=== PATIENT | male | born 1945 | race Caucasian/White ===

== ENCOUNTER 2022-05-03 15:09 | Emergency (ER) | payer MEDICARE, SELFPAY ==
--- NOTE | 2022-05-03 15:23 | PC.NURSE ---
Pt called 911 at approximately 1345 complaining of chest pain. Pt down for approximately 1hr per EMS. EMS reported that patient was in V-Fib on arrival. EMS reported administering a total of 9 Epinepherine, 2 of Narcan, and 1 amp of Bicarb en route to facility while performing CPR. EMS reported achieving ROSC for approximately 20 minutes before pt returned to asystole. EMS was performing CPR upon arrival to ED. 1503 Patient arrived to ED treatment room via EMS. CPR in progress. 1508 Pulse check. Asystole. CPR resumed. 1509 1 Epinepherine administered via Rt IO. 1510 Pulse check. Asystole. D/Divina CPR. 1510 TOD Called
--- NOTE | 2022-05-03 16:27 | W.ED.CPR ---
HPI - CPR General: Chief Complaint: Cardiac Arrest/CPR Stated Complaint: code blue Time Seen by Provider: 05/03/22 15:16 History of Present Illness: 77-year-old male presents in by EMS chief complaint of CPR in progress. The patient was on the phone with family which she contacted a personal best friend which was telling him he had a heart attack in which the personal best friend contacted 911 Jane littlejohn arrived upon the house which patient was unresponsive noted to be in his reclining chair with no pulse. Immediately CPR was started by Sheriff carvajal which followed that by EMS upon EMS arrival the patient was found to be in PEA/V. fib patient was given several doses of both epi and atropine as well as 3 shocks/defibrillation's were advised patient proceeded to go back and forth had a PEA as well as asystole when she presented to the ER total downtime from bystander CPR was greater than 1 hour. Patient did have a Combitube placed prior to arrival with no difficulty. Review of Systems General: Reports: ROS unobtainable due to endotracheal tube and ROS unobtainable due to medical condition Physical Exam Narrative: EXAM NARRATIVE: Patient is totally unresponsive, CPR actively done, no purposeful movement noted mottling noted to the skin distended abdomen appreciated no purposeful movement GCS is 8 Eye: OTHER: Fixed and dilated 3 mm Cardio: OTHER: No spontaneous cardiac activity noted on exam CPR in progress Neuro: OTHER: GCS is 8 no purposeful movement noted no lateralizing signs appreciated MDM - Cardiac Arrest/CPR Medical Decision Making Upon arrival to the ER and additional 2 doses of epinephrine were given per protocol which CPR was continued during pulse checks bedside ultrasound was done that revealed no cardiac activity the patient's CPR was terminated in which family were brought back to the room. Discharge Plan Discharge Patient Disposition: Clinical Impression: Cardiac arrest, Sudden cardiac Condition: Stable Coding Level of Care Code ED Hydrogen Cell Tender for Adiel Chavez
[2022-05-03 18:30] VITALS: BP 0/0; PULSE 0; RESP 0; O2SAT 0
== END 2022-05-03 19:42 | disposition expired ==
PROVIDERS: Emergency Provider Emergency Medicine
DX: I46.9 Cardiac arrest, cause unspecified (principal)
CPT/HCPCS: 99285